=== PATIENT | female | born 1980 | race Caucasian/White ===

== ENCOUNTER 2019-06-15 13:25 | Outpatient (CLI) | payer BC ==
--- NOTE | 2019-06-15 13:56 | RAD ---
AP PELVIS: HISTORY: Pain in left thigh. FINDINGS: No fracture, dislocation or bony destruction is seen. POS: H
--- NOTE | 2019-06-15 13:58 | RAD ---
LUMBAR SPINE FIVE VIEWS: HISTORY: Pain in the left thigh. FINDINGS: No fracture, subluxation, bony destruction, spondylolysis or spondylolisthesis is seen. POS: [facility]
--- NOTE | 2019-06-15 14:37 | RAD ---
Exam: XR Knee Rt 4 View STANDARD HISTORY: Lateral right knee pain for 2 months. COMPARISON: None FINDINGS: No acute fracture, dislocation, or other acute osseous abnormality is identified. IMPRESSION: No acute osseous abnormality is identified.
--- NOTE | 2019-06-15 14:38 | RAD ---
XR Knee Lt 4 View STANDARD HISTORY: Left knee pain FINDINGS: No fracture or dislocation is identified. No joint effusion or bony destruction is identified.
== END 2019-06-15 13:26 | disposition home or self-care (01) ==
LOC: BICRAD 13:25
PROVIDERS: ATTEND Chiropractor Sports Physician
DX: M79.652 Pain in left thigh (principal)
CPT/HCPCS: 72110; 72170

== ENCOUNTER 2021-07-28 08:51 | Outpatient (CLI) | payer BC | END 2021-07-28 08:52 | disposition home or self-care (01) | LOC: CTENTCT 08:51 | PROVIDERS: ATTEND Specialist | DX: L71.0 Perioral dermatitis (principal) | CPT/HCPCS: 70486 ==

== ENCOUNTER 2023-03-26 08:53 | Outpatient (CLI) | payer BC | END 2023-03-26 08:54 | disposition home or self-care (01) | LOC: BICRAD 08:53 | PROVIDERS: ATTEND Podiatrist | DX: M77.41 Metatarsalgia, right foot (principal); Q66.71 Congenital pes cavus, right foot ==